=== PATIENT | male | born 1960 | race Caucasian/White ===

== ENCOUNTER 2021-04-07 19:26 | Inpatient (IN) | payer BC ==
[2021-04-07] VITALS (17 sets, daily range): BP systolic 146; BP diastolic 73; PULSE 71; TEMP 99.1; O2SAT 92–100
[~2021-04-07] VITALS: Ht 167.6 cm; Wt 61.9 kg
[2021-04-07] MEDS ORDERED: NORCO 325 MG-51 TAB PO (21:17)
[2021-04-07] MEDS ORDERED: XARELTO10 MG PO (21:17)
[2021-04-07] MEDS ORDERED: PRINIVIL10 MG PO (21:18)
--- NOTE | 2021-04-07 22:48 | NUR ---
AT 2019 REPORT WAS RECIEVED FROM [place] ABOUT MR. AGUAYO AND THAT HE WAS ON HIS WAY TO OUR FACILITY VIA EMS. MR. AGUAYO ARRIVED INTO ICU ROOM 8 AT 2034 AND WAS ABLE TO TRASNFER HIMSELF WITH 1 ASSIST TO THE BED. HIS BELONGINGS INCLUDE: STREET CLOTHES, EYE GLASSES, PHONE, SHOES, AND A WHEELED WALKER. MR. AGUAYO WAS ORIENTED TO THE UNIT. HE APPEARS IN NO DISTRESS OR PAIN AND UNDERSTAND WHY HE IS IN THE ICU. PHYSICIAN WAS AT BEDSIDE. PATIENT IS ALERT AND ORIENTED AND CALL LIGHT WITHIN REACH. WILL CONTINUE TO MONITOR.
[2021-04-07 22:53] LABS: CALCIUM 8.7 mg/dL (8.4-10.2); CREATININE, serum 1.09 mg/dL (0.72-1.25); POTASSIUM 3.6 mmol/L (3.5-4.5)
[2021-04-07 23:15] LABS: TSH w REFLEX 3.647 uIU/mL (0.350-4.940)
[2021-04-08] VITALS (655 sets, daily range): BP systolic 110–136; BP diastolic 45–65; PULSE 65–74; TEMP 98.1–99.9; O2SAT 63–100
[2021-04-08 05:02] LABS: MEAN CELL VOLUME 95 fl (80.0-100.0); MEAN CORPUSCULAR HGB CONC 36 g/dl (33.0-37.0); MEAN PLATELET VOLUME 8.3 fl (7.4-10.4); PLATELET COUNT 523 K/mm3 (130-400); RED BLOOD COUNT 2.12 M/mm3 (4.20-5.60); REDCELL DISTRIBUTION WIDTH-CV 12.3 % (11.5-14.5)
[2021-04-08 05:05] LABS: HEMATOCRIT 20.1 % (42.0-52.0); HEMOGLOBIN 7.2 g/dl (13.5-18.0); MEAN CORPUSCULAR HEMOGLOBIN 34 pg (27.0-31.0)
[2021-04-08 05:18] LABS: CALCIUM 8.5 mg/dL (8.4-10.2); CREATININE, serum 0.94 mg/dL (0.72-1.25); POTASSIUM 3.8 mmol/L (3.5-4.5)
[2021-04-08 05:32] LABS: BAND 4 % (0-10); LYMPHOCYTE 10 % (20.0-51.0); METAMYELOCYTE 1 % (0-0); NEUTROPHILS 77 % (42.0-75.2); PLATELET ESTIMATE INCREASED (NORMAL)
--- NOTE | 2021-04-08 10:41 | NUR ---
SW met with patient and , Lorena ([phone]), at bedside, to discuss discharge plan. Patient had total knee replacement 2 weeks ago and has a walker and shower chair. Otherwise patient works full-time and was independent with ADLS prior. Patient and live in a mobile home in [place] where there are 4 steps to enter. PCP is Dr. Yoel Collins and he receives his medications from [facility] in [place] and he has no difficulty getting or affording them. SW will continue to follow for patient needs. *D/C Plan: Discharge home with pending p/t o/t jil
--- NOTE | 2021-04-08 10:51 | NUR ---
Initial visit; Patient thanked Outside Sales Engineer for looking in on him though declined spiritual care. Outside Sales Engineer wished him God's blessings.
[2021-04-08 16:01] LABS: SODIUM 121 mmol/L (136-145)
[2021-04-08 16:48] LABS: OSMOLALITY-SERUM 249 Osm/kg (275-300)
--- NOTE | 2021-04-08 16:51 | NUR ---
PT TRANSFERRED FROM ICU. DOING WELL. VITALS NORMAL. DENIES PAIN. VITALS NORMAL. GATORADE REQUESTED AND GIVEN. NO OTHER NEEDS AT THIS TIME. CALL TH[place]ODEAUX IN REACH
--- NOTE | 2021-04-08 18:35 | NUR ---
PT CAME UP FROM ICU. DENIES PAIN. RESTING IN BED. NO NEEDS AT THIS TIME. CALL THIBODEAUX IN REACH.
--- NOTE | 2021-04-08 20:30 | NUR ---
Patient is resting in bed with in room. Alert and oriented x 4, VSS, Denies pain, nausea or vomiting. 5 min before went out of room with and the use of his walker. Assisted with the belt. Walked with no problem 20mts and came back to room. Questions about hyponatremia, hypokalemia, lasix, diet, answered. Assessment comleted, meds provided. No further needs at this time. Call light within reach.
[2021-04-09 00:01] VITALS: BP 135/65; PULSE 68; TEMP 99.2
[2021-04-09 04:16] VITALS: BP 150/69; PULSE 68; TEMP 98.8
--- NOTE | 2021-04-09 06:59 | NUR ---
Patient has been stable. No neurological changes. Alert and oriented. Shift report given to dayshift nurse.
--- NOTE | 2021-04-09 07:00 | NUR ---
Report received form RADHA Avalos. PT in bed sleeping, denies needs, will continue to monitor.
[2021-04-09 07:13] LABS: BASO # 0.1 K/mm3 (0.0-0.2); BASO % 0.7 % (0.0-2.0); EOS # 0.1 K/mm3 (0.0-0.7); GRAN # 5.1 K/mm3 (1.4-6.5); GRAN % 70.6 % (42.2-75.2); LYMPH # 0.9 K/mm3 (1.2-3.4); LYMPH % 12.3 % (20.0-51.0); MEAN CELL VOLUME 98 fl (80.0-100.0); MEAN CORPUSCULAR HGB CONC 35 g/dl (33.0-37.0); MEAN PLATELET VOLUME 8.5 fl (7.4-10.4); MONO % 14.3 % (1.7-9.3); PLATELET COUNT 540 K/mm3 (130-400); RED BLOOD COUNT 2.24 M/mm3 (4.20-5.60); REDCELL DISTRIBUTION WIDTH-CV 12.6 % (11.5-14.5)
[2021-04-09 07:14] LABS: HEMOGLOBIN 7.7 g/dl (13.5-18.0); MEAN CORPUSCULAR HEMOGLOBIN 34 pg (27.0-31.0)
[2021-04-09 07:31] LABS: CALCIUM 8.7 mg/dL (8.4-10.2); CREATININE, serum 0.77 mg/dL (0.72-1.25); POTASSIUM 3.9 mmol/L (3.5-4.5)
[2021-04-09 07:54] LABS: TSH w REFLEX 3.114 uIU/mL (0.350-4.940)
[2021-04-09 08:01] VITALS: BP 149/62; PULSE 66; TEMP 98.3
[2021-04-09] MEDS ORDERED: XARELTO10 MG PO (08:53)
[2021-04-09] MEDS ORDERED: ROXICODONE 55 MG/TAB PO (08:53)
[2021-04-09] MEDS ORDERED: PRINIVIL10 MG PO (08:54)
--- NOTE | 2021-04-09 09:03 | NUR ---
Pt is alert and oriented. Resting in bed, NENANA. L knee dressing is aquacel and is CDI, some swelling to knee but overall pt is doing very well with replacement. Disucssed labs, IVF, IV lasix wiht Lorena at bedside and she wants to have more feedback. pt up with PT, moves well. Denies needs, will conitnue to monitor.
[2021-04-09 10:45] VITALS: BP 109/50; PULSE 78; TEMP 98.1
--- NOTE | 2021-04-09 13:32 | NUR ---
Called Dr. Pacheco per pt request for pt possible discharge today, diet, home meds and fluid restrictions. He will talk to Bedros and then go visit with pt. Will continue to moniotr. Pt resting with eyes closed.
--- NOTE | 2021-04-09 13:34 | NUR ---
Discharge teaching completed at this time. INT dc'd, tip intact. Instructions reviewed, escorted out via w/c with medical staff, family to drive home, criteria met.
[2021-04-09 16:46] VITALS: BP 120/56; PULSE 78; TEMP 97.8
--- NOTE | 2021-04-09 17:49 | NUR ---
Pt at bedside. Able to get up and walk with walker well. Resting in bed most of afternoon. Up to bathroom but not BM otday, at bedside most of the day. Will monitor and give bedside shift report to [facility] nurse who will resume care.
[2021-04-09 20:00] VITALS: BP 126/56; PULSE 80; TEMP 97.6
--- NOTE | 2021-04-09 20:00 | NUR ---
At time of assessment patient is resting in bed with at bedside. He is alert and oriented with a flat affect. He complains of pain 5/10 in left knee and PRN norco is administered. Fluids infusing. Comfort measures provided and call light in reach.
[2021-04-10] VITALS: BP 136/67; PULSE 70; TEMP 98.4
[2021-04-10 04:00] VITALS: BP 148/68; PULSE 72; TEMP 98.6
[2021-04-10 07:23] VITALS: BP 141/72; PULSE 66; TEMP 98.6
--- NOTE | 2021-04-10 08:10 | NUR ---
Pt assessment complete. Pt is laying in bed upon entry, he is A/O x4. His breathing is even and unlabored on RA. Pt denies SOB. No pain at this time. No complaints of N/V/D. Explained POC to patient. No further needs at this time. Call light within reach.
[2021-04-10 08:15] LABS: CALCIUM 8.4 mg/dL (8.4-10.2); CREATININE, serum 0.77 mg/dL (0.72-1.25)
[2021-04-10 12:00] VITALS: BP 148/70; PULSE 68; TEMP 98.2
[2021-04-10] MEDS ORDERED: FOLIC ACID 11 MG/TA1 PO (12:02)
[2021-04-10] MEDS ORDERED: THIAMINE 1100 MG/TAB PO (12:02)
[2021-04-10] MEDS ORDERED: SODIUM CHLORIDE1 GM PO ×2 (12:05)
--- NOTE | 2021-04-10 13:15 | NUR ---
Discharge instructions and paperwork reviewed with patient and his . All questions answered at this time. IV to LFA dc'd catheter tip intact.
--- NOTE | 2021-04-10 13:54 | NUR ---
Cosmetic Counselor returned to complete patient's POA form but his stated they are getting ready to go home and did not want to complete it so they took it with them.
--- NOTE | 2021-04-10 14:00 | NUR ---
Pt wheeled out by staff at this time.
== END 2021-04-10 14:00 | disposition home or self-care (01) | DRG 640 ==
LOC: ICU 19:26 → MEDICAL 04-08 16:04
PROVIDERS: Internal Medicine; Student in an Organized Health Care Education/Training Program; ADMIT Student in an Organized Health Care Education/Training Program
DX: E87.1 Hypo-osmolality and hyponatremia (principal); E43 Unspecified severe protein-calorie malnutrition; Z96.652 Presence of left artificial knee joint; E87.8 Other disorders of electrolyte and fluid balance, not elsewhere classified; D64.9 Anemia, unspecified; I10 Essential (primary) hypertension; F10.10 Alcohol abuse, uncomplicated; Z20.822 Contact with and (suspected) exposure to COVID-19; Z68.22 Body mass index [BMI] 22.0-22.9, adult
CPT/HCPCS: 99223-AI; 99233-AI; 99239; J1644; J1940; J7030; J7131